=== PATIENT | male | born 1995 | race Caucasian/White ===

== ENCOUNTER 2021-02-13 13:14 | Outpatient (RCR) | payer OTHER | END 2021-02-13 16:40 | disposition home or self-care (01) | PROVIDERS: ATTEND Internal Medicine | DX: M54.16 Radiculopathy, lumbar region (principal) ==

== ENCOUNTER → 2021-02-13 | Outpatient (CLI) | payer OTHER ==
--- NOTE | 2021-02-13 15:52 | Diagnostic Imaging Report ---
INDICATION: Back pain. TIME OF EXAM: 2:24 PM. FINDINGS: Very slight left convexity lower thoracic scoliotic curvature is noted. There is normal kyphotic curvature. The vertebral body heights are maintained. No fracture is seen. The pedicles and paraspinous line are intact. IMPRESSION: Slight left convexity lower thoracic scoliotic curvature. No acute bony abnormality is detected. Dictated by: Dictated on workstation # [id number]
== END ==
LOC: RAD 14:01
PROVIDERS: ATTEND Internal Medicine
DX: M43.8X4 Other specified deforming dorsopathies, thoracic region (principal)
CPT/HCPCS: 72072